=== PATIENT | female | born 1980 | race Caucasian/White ===

== ENCOUNTER 2017-02-11 20:48 | Emergency (ER) | payer BC ==
[~2017-02-11] VITALS: Ht 167.6 cm; Wt 57.3 kg
[2017-02-11 20:54] VITALS: BP 148/86; PULSE 78; TEMP 98.5
[2017-02-11] MEDS ORDERED: ZYRTEC 10MG10 MG PO (20:57)
[2017-02-11] MEDS ORDERED: BIRTH CONTROL PO (20:57)
[2017-02-11] MEDS ORDERED: MULTI VITAMINS1 TAB PO (20:58)
[2017-02-11] MEDS ORDERED: PREDNISONE20 MG PO (21:36)
== END 2017-02-11 21:52 | disposition home or self-care (01) ==
LOC: COL.ER 20:48
DX: L25.9 Unspecified contact dermatitis, unspecified cause (principal)
CPT/HCPCS: J7512

== ENCOUNTER 2019-10-20 18:50 | Inpatient (IN) | payer BC ==
[2019-10-20] VITALS (17 sets, daily range): BP systolic 74–132; BP diastolic 40–79; PULSE 81–114; TEMP 98–98.4
[~2019-10-20] VITALS: Ht 167.6 cm; Wt 71.8 kg
--- NOTE | 2019-10-20 18:30 | NUR ---
HERE WITH SPOUSE DIRECT ADMIT FROM OFFICE FOR LABOR AND SROM
[~2019-10-20 18:50] MED LIST: BIRTH CONTROL PO; MULTI VITAMINS1 TAB PO; PREDNISONE20 MG PO; ZYRTEC 10MG10 MG PO
[2019-10-20] MEDS ORDERED: TIROSINT75 MC1 PO (19:23)
[2019-10-20] MEDS ORDERED: PRENATAL TABLET (19:23)
[2019-10-20 20:43] LABS: HEMATOCRIT 37.3 % (37.0-47.0); HEMOGLOBIN 12.2 g/dl (12.5-16.0); MEAN CELL VOLUME 89 fl (80.0-100.0); MEAN CORPUSCULAR HEMOGLOBIN 29 pg (27.0-31.0); MEAN CORPUSCULAR HGB CONC 33 g/dl (33.0-37.0); MEAN PLATELET VOLUME 10.4 fl (7.4-10.4); PLATELET COUNT 260 K/mm3 (130-400); RED BLOOD COUNT 4.21 M/mm3 (4.10-5.30); REDCELL DISTRIBUTION WIDTH-CV 14.3 % (11.5-14.5)
[2019-10-20 21:38] LABS: BAND 2 % (0-10); LYMPHOCYTE 23 % (20.0-51.0); NEUTROPHILS 69 % (42.0-75.2)
[2019-10-20 21:39] LABS: HYPOCHROMIA 1+; PLATELET ESTIMATE NORMAL (NORMAL)
--- NOTE | 2019-10-20 23:13 | NUR ---
BP 94/55 LATE DECEL - EPHEDRINE PREPARED 2319 EPHEDRINE 10 MG IV GIVEN, L MANUEL HERE 2321 EPHEDRINE 10 MG IV PER L MANUEL BP 123/56 2330 PE[address] B[address] RT LAT
[2019-10-21] VITALS (26 sets, daily range): BP systolic 94–149; BP diastolic 50–80; PULSE 82–151; TEMP 97.8–98.5
--- NOTE | 2019-10-21 03:40 | NUR ---
DR IBIS MEEKS CALLED TO EVALUATE PT - HAS PUSHED [address] YOUNG HERE AT BEDSIDE - EVALUATES EFFORT PUSHING AND POSITION. 0452 FEMALE- TO MOTHERS ABDOMEN
--- NOTE | 2019-10-21 05:40 | NUR ---
[facility] OUT- 250CC
--- NOTE | 2019-10-21 07:20 | NUR ---
0720- Pt. attempting to eat breakfast and became nauseous. 0723- BP86/52 with pulse of 91. Nurse at bedside. HOB lowered, fluids running. 0727- Pt. states she is beginning to feel better. Bleeding WNL. Called Feli Robles RN to bedside to help palpate the fundus. RN remains at bedside. 0729- BP 93/53 with pulse of 97. 0731- BP 102/57 with pulse of 88. 0734- BP 99/54 with pulse of 90. 0738- BP 96/55. Pt. states she is feeling better, color noted to be returned. HOB elevated slightly. Advised pt. to eat slowly and to call out to RN if feeling light headed, ringing in the ears, nauseous, dizzy, or feeling just not normal. Call light within reach. Bleeding WNL. Pt. denies further needs at this time.
--- NOTE | 2019-10-21 08:15 | NUR ---
0815- Noé. VANDANA Cardenas and Margaret Cabezas RN at bedside to ambulate pt. to bathroom. Pt. up to bathroom to void and get cleaned up. Pt. began very nauseous, lightheaded and pale. Pt. moved to wheelchair and put back in bed. Pt. immediately began to feel better. 0820- Straight cathed patient and got 500ml of clear yellow urine. Cleaned patient up, panties on, new pad and ice pack applied to periarea. Fundus firm, at the U and bleeding WNL. 0830- Attempted to sit patient up and get in wheelchair to move to PP room. Pt. immediately got nauseous and light headed. Layed patient down and got a second RN to help. Margaret Cabezas RN at bedside to help move pt. to wheelchair. 0840- Pt. moved to PP room 207, pt. tolerated procedure well and is resting in bed. Orientated to room and bed. Call light in reach. Patient verbalized feeling much better and wanting to rest.
[2019-10-21 11:33] LABS: MEAN CELL VOLUME 89 fl (80.0-100.0); MEAN CORPUSCULAR HGB CONC 33 g/dl (33.0-37.0); MEAN PLATELET VOLUME 10.5 fl (7.4-10.4); PLATELET COUNT 204 K/mm3 (130-400); RED BLOOD COUNT 2.79 M/mm3 (4.10-5.30); REDCELL DISTRIBUTION WIDTH-CV 14.2 % (11.5-14.5)
[2019-10-21 11:34] LABS: HEMATOCRIT 24.9 % (37.0-47.0); HEMOGLOBIN 8.3 g/dl (12.5-16.0); MEAN CORPUSCULAR HEMOGLOBIN 30 pg (27.0-31.0)
--- NOTE | 2019-10-21 18:30 | NUR ---
Assumed care at this time.
[2019-10-22 00:45] VITALS: BP 114/72; PULSE 87; TEMP 97.8
[2019-10-22 08:31] LABS: MEAN CELL VOLUME 90 fl (80.0-100.0); MEAN CORPUSCULAR HGB CONC 33 g/dl (33.0-37.0); MEAN PLATELET VOLUME 9.8 fl (7.4-10.4); PLATELET COUNT 181 K/mm3 (130-400); RED BLOOD COUNT 2.87 M/mm3 (4.10-5.30); REDCELL DISTRIBUTION WIDTH-CV 14.4 % (11.5-14.5)
[2019-10-22 08:33] LABS: HEMATOCRIT 25.8 % (37.0-47.0); HEMOGLOBIN 8.5 g/dl (12.5-16.0); MEAN CORPUSCULAR HEMOGLOBIN 30 pg (27.0-31.0)
[2019-10-22] MEDS ORDERED: IBU800 M1 PO (08:39)
[2019-10-22] MEDS ORDERED: FERROUS SU325 MG/TAB PO (08:40)
[2019-10-22] MEDS ORDERED: PERCOCET 325 MG1 TA2 PO (08:40)
[2019-10-22 09:00] VITALS: BP 106/61; PULSE 91; TEMP 97.8
[2019-10-22 16:28] VITALS: BP 96/57; PULSE 88; TEMP 97.9
[2019-10-22 20:50] VITALS: BP 108/81; PULSE 97; TEMP 98.4
[2019-10-23 08:12] VITALS: BP 112/65; PULSE 93; TEMP 98.1
--- NOTE | 2019-10-23 16:30 | NUR ---
DC INSTRUCTIONS GIVEN, PT VERBALIZES UNDERSTANDING. NO FURTHER QUESTIONS NOTED. BANDS MATCHED AND HUGS TAG REMOVED.
== END 2019-10-23 17:10 | disposition home or self-care (01) | DRG 768 ==
LOC: LDRO 18:50 → LDR 18:51 → LDRO 19:03 → OB 10-21 08:40
PROVIDERS: ADMIT Student in an Organized Health Care Education/Training Program
PROC: 10E0XZZ Delivery of Products of Conception, External Approach (ICD-10-PCS; principal; 2019-10-21)
PROC: 0DQR0ZZ Repair Anal Sphincter, Open Approach (ICD-10-PCS; 2019-10-21)
DX: O69.81X0 Labor and delivery complicated by cord around neck, without compression, not applicable or unspecified (principal); Z37.0 Single live birth; O70.20 Third degree perineal laceration during delivery, unspecified; O99.284 Endocrine, nutritional and metabolic diseases complicating childbirth; E03.9 Hypothyroidism, unspecified; O28.3 Abnormal ultrasonic finding on antenatal screening of mother; O99.02 Anemia complicating childbirth; D64.9 Anemia, unspecified; O75.89 Other specified complications of labor and delivery; R00.0 Tachycardia, unspecified; Z3A.39 39 weeks gestation of pregnancy
CPT/HCPCS: J2590; J7120

== ENCOUNTER → 2023-07-03 | Outpatient (CLI) | payer BC ==
[~2023-07-03] MED LIST changes: +FERROUS SU325 MG/TAB PO; +IBU800 M1 PO; +PERCOCET 325 MG1 TA2 PO; +PRENATAL TABLET; +TIROSINT75 MC1 PO
== END ==
LOC: MC.RAD 13:30
DX: Z12.31 Encounter for screening mammogram for malignant neoplasm of breast (principal)